=== PATIENT | female | born 1990 | race Caucasian/White ===

== ENCOUNTER 2016-08-03 09:48 | Emergency (ER) | payer OTHER ==
[2016-08-03 10:22] VITALS: BP 128/77
[2016-08-03] MEDS ORDERED: Lidocaine 2% PF * 5 ML VIAL ONE (10:31)
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
== END 2016-08-03 11:02 | disposition home or self-care (01) ==
LOC: UCEAST 09:48
DX: S01.112A Laceration without foreign body of left eyelid and periocular area, initial encounter (principal); V19.3XXA Pedal cyclist (driver) (passenger) injured in unspecified nontraffic accident, initial encounter; Z88.1 Allergy status to other antibiotic agents; Z88.5 Allergy status to narcotic agent
CPT/HCPCS: 12002; 12011; 99211; G0463

== ENCOUNTER 2016-08-19 16:12 | Emergency (ER) | payer OTHER ==
[2016-08-19 16:30] VITALS: BP 120/80
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
--- NOTE | 2016-08-19 17:05 | RAD ---
INDICATION: Right wrist injury. TECHNIQUE: 3 views of the right wrist were obtained. FINDINGS: There is marked soft tissue swelling present over the dorsal aspect of the wrist. The bones are in normal alignment. No fracture is seen. Joint spaces appear maintained. IMPRESSION: SOFT TISSUE SWELLING, NO FRACTURE IS SEEN. IF THE PATIENT'S SYMPTOMS PERSIST RECOMMEND FOLLOW-UP IMAGING.
== END 2016-08-19 17:14 | disposition home or self-care (01) ==
LOC: UCEAST 16:12
DX: S60.211A Contusion of right wrist, initial encounter (principal); V10.0XXA Pedal cycle driver injured in collision with pedestrian or animal in nontraffic accident, initial encounter; Y93.55 Activity, bike riding; Y92.9 Unspecified place or not applicable; Z88.5 Allergy status to narcotic agent; Z88.1 Allergy status to other antibiotic agents
CPT/HCPCS: 99212; G0463

== ENCOUNTER 2016-08-22 13:05 | Emergency (ER) | payer OTHER ==
[2016-08-22 13:19] VITALS: BP 134/92
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
== END 2016-08-22 13:43 | disposition home or self-care (01) ==
LOC: UCEAST 13:05
DX: S60.211D Contusion of right wrist, subsequent encounter (principal); V10.0XXD Pedal cycle driver injured in collision with pedestrian or animal in nontraffic accident, subsequent encounter; R03.0 Elevated blood-pressure reading, without diagnosis of hypertension; Z88.1 Allergy status to other antibiotic agents; Z88.5 Allergy status to narcotic agent
CPT/HCPCS: 99211; G0463

== ENCOUNTER 2016-09-08 19:32 | Emergency (ER) | payer SELFPAY ==
[2016-09-08 20:56] VITALS: BP 125/78
[2016-09-08] MEDS ORDERED: Gelfoam 12-7 ADSORBABLE* SPONGE ONE (21:14)
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
== END 2016-09-08 21:45 | disposition home or self-care (01) ==
LOC: UCEAST 19:32
DX: S61.012A Laceration without foreign body of left thumb without damage to nail, initial encounter (principal); W26.0XXA Contact with knife, initial encounter; Y93.9 Activity, unspecified; Y92.9 Unspecified place or not applicable; Y99.0 Civilian activity done for income or pay; Z88.1 Allergy status to other antibiotic agents; Z88.5 Allergy status to narcotic agent
CPT/HCPCS: 12001; 99211; A9270-GY; G0463

== ENCOUNTER 2017-06-15 20:33 | Emergency (ER) | payer OTHER ==
[2017-06-15] MEDS ORDERED: Ketorolac INJ* 30 MG/ML 1 ML VIAL IV PUSH ONE (21:37)
[2017-06-15] MEDS ORDERED: Clindamycin 600 MG IVPREMIX(* 600 MG/50 ML SDV IV ONE (21:56)
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
[2017-06-15 23:10] VITALS: BP 108/70
--- NOTE | 2017-06-16 12:38 | ED ---
Progress - Progress Note Progress Note: Pt's wound cx reveals + MRSA and + Staph Aureus. Pt was d/c'd w/ clindamycin. No change at this time. Course/Dx - Course Course Of Treatment: Brown discharge from wound. Cultured it and opened it to its depth. Only min output. No abscess. No Kinavel's signs. No lymphangitis. IV abx here after extensive cleaning in sink with chlorohexidine soap. D/C on antibiotics and dry dressing. - Diagnoses Provider Diagnoses: Wound infection
--- NOTE | 2017-06-17 09:15 | PN ---
Progress Note - Progress Note Date of Service: 06/15/17 Note: wound culture results shows - MRSA and + s aureus. placed on clinda at d/c. will wait for final culture sensitivity.
--- NOTE | 2017-06-18 09:00 | PN ---
Progress Note - Progress Note Date of Service: 07/16/17 Note: Wound culture grew s. aureus with + MRSA Patient placed on Clindamycin prior to discharge. Culture shows sensitivities to Clindamycin. Nothing further at this time, Jami Roman PA-C
== END 2017-06-15 23:18 | disposition home or self-care (01) ==
LOC: ED 20:33
DX: S61.512A Laceration without foreign body of left wrist, initial encounter (principal); L08.9 Local infection of the skin and subcutaneous tissue, unspecified; B95.62 Methicillin resistant Staphylococcus aureus infection as the cause of diseases classified elsewhere; W26.8XXA Contact with other sharp object(s), not elsewhere classified, initial encounter; Y93.9 Activity, unspecified; Z88.1 Allergy status to other antibiotic agents; Z88.8 Allergy status to other drugs, medicaments and biological substances
CPT/HCPCS: 87070; 87077; 87186; 87205; 87640; 87641; 96374; 96375; 99282; J1885

== ENCOUNTER 2017-07-06 11:33 | Emergency (ER) | payer OTHER ==
--- NOTE | 2017-07-06 12:58 | UC ---
Respiratory Complaint HPI - HPI Summary HPI Summary: 27 yo female c/o last 2 days progressive cough (clear), runny nose (nonpurulent) , headache, fever. No sore throat. No rash. GI upset but not n/v/d. No urinary symptoms. - History of Current Complaint Chief Complaint: UCGeneralIllness Stated Complaint: URI Time Seen by Provider: 07/06/17 12:31 Hx Obtained From: Patient Hx Last Menstrual Period: 06/25/17 ?: No - Allergies/Home Medications Allergies/Adverse Reactions: Allergies Allergy/AdvReac Type Severity Reaction Status Date / Time Codeine Allergy Severe Hives Verified 07/06/17 12:02 Amoxicillin [From Augmentin] Allergy Unknown Unknown Verified 07/06/17 12:02 Reaction Details Clavulanic Acid Allergy Unknown Unknown Verified 07/06/17 12:02 [From Augmentin] Reaction Details Bee Venom Allergy Hives/Diff. Verified 07/06/17 12:02 Breathing/I tching Hydromorphone [From Dilaudid] AdvReac Vomiting Verified 07/06/17 12:02 ishmael products Allergy Hives/Diff. Uncoded 07/06/17 12:02 Breathing/I tching PMH/Surg Hx/FS Hx/Imm Hx Previously Healthy: Yes Respiratory History: Asthma - Surgical History Surgical History: None Surgery Procedure, Year, and Place: denies - Family History Known Family History: Positive: Diabetes, Other - Depression, alcohol abuse. No hx of glaucoma - Social History Alcohol Use: Rare Substance Use Type: None, Prescribed Substance Use Comment - Amount & Last Used: ADDERAL Smoking Status (MU): Never Smoked Tobacco - Immunization History Most Recent Influenza Vaccination: never Most Recent Tetanus Shot: 2012 Most Recent Pneumonia Vaccination: never Review of Systems Constitutional: Fever, Fatigue Skin: Negative Eyes: Negative ENT: Nasal Discharge, Sinus Congestion Respiratory: Cough Cardiovascular: Other - chest pain with cough Gastrointestinal: Other - see hpi Genitourinary: Negative Motor: Negative Neurovascular: Negative Musculoskeletal: Negative Neurological: Headache Psychological: Negative Is Patient Immunocompromised?: No All Other Systems Reviewed And Are Negative: Yes Physical Exam Triage Information Reviewed: Yes Appearance: Well-Nourished - looks tired, able sit up and walk around but tired. NAD. Nontoxic. Vital Signs: Initial Vital Signs Temp 99.1 F 07/06/17 11:57 Pulse 101 07/06/17 11:57 Resp 18 07/06/17 11:57 BP 130/74 07/06/17 11:57 Pulse Ox 100 07/06/17 11:57 Vital Signs Reviewed: Yes Eye Exam: Normal ENT Exam: Normal ENT: Positive: Pharyngeal erythema - mild post pharyngeal redness, no sores, no purulence. Neck exam: Normal Neck: Positive: Supple, Nontender, No Lymphadenopathy Respiratory: Positive: Wheezing - occas exp wheeze, + rhonchorus cough. BS equal. Cardiovascular: Positive: No Murmur, Pulses Normal, Brisk Capillary Refill, Tachycardia - HR increases with sitting up. Good pulses. Nondiaphoretic. Reg rhythm Abdominal Exam: Normal Abdomen Description: Positive: Nontender Musculoskeletal Exam: Normal Neurological Exam: Normal - nonfocal, grossly intact Psychological Exam: Normal, Other - conversing easily and appropriately Skin Exam: Normal UC Diagnostic Evaluation - Laboratory Result Diagrams: 07/06/17 14:45 07/06/17 14:45 O2 Sat by Pulse Oximetry: 100 Respiratory Course/Dx - Course Course Of Treatment: Reviewed coa / tx plan. Reviewed CXR report. Questions as posed answered to the best of my ability. - Differential Dx/Diagnosis Provider Diagnoses: Bronchitis with bronchospasm Discharge - Discharge Plan Condition: Stable Disposition: HOME Prescriptions: Albuterol 2.5MG/3ML (0.083%)* [Ventolin 2.5 MG/3 ML NEB.MIGUEL ANGEL*] 2.5 mg INH Q6H PRN #1 box PRN Reason: Wheezing Albuterol HFA INHALER* [Ventolin HFA Inhaler*] 1 - 2 puff INH Q6H PRN #1 mdi PRN Reason: Wheezing Cephalexin CAP* [Keflex 500 CAP*] 500 mg PO TID #21 cap Oseltamivir CAP* [Tamiflu CAP*] 75 mg PO BID #10 cap Patient Education Materials: Acute Bronchitis (ED), Bronchospasm (ED) Forms: *Work Release Referrals: Delia Banda MD [Primary Care Provider] - Additional Instructions: Please follow up with your primary care provider, next week if possible. Seek medical attention for worse or new problems in the meantime.
[2017-07-06 13:43] VITALS: BP 120/77
--- NOTE | 2017-07-06 13:54 | RAD ---
HISTORY: Fever, cough COMPARISONS: September 05, 2012 VIEWS: 4: Frontal dual-energy and lateral views of the chest. FINDINGS: CARDIOMEDIASTINAL SILHOUETTE: The cardiomediastinal silhouette is normal. JOSEP: The josep are normal. PLEURA: The costophrenic angles are sharp. No pleural abnormalities are noted. LUNG PARENCHYMA: The lungs are clear. ABDOMEN: The upper abdomen is clear. There is no subphrenic gas. BONES AND SOFT TISSUES: No bone or soft tissue abnormalities are noted. OTHER: None. IMPRESSION: NO ACTIVE CARDIOPULMONARY DISEASE.
[2017-07-06 19:01] LABS: ABS Basophils 0.1 10^3/ul (0-0.2); ABS Eosinophils 0 10^3/ul (0-0.6); ABS Lymphocytes 0.9 10^3/ul (1.0-4.8); ABS Monocytes 0.7 10^3/ul (0-0.8); ABS Nucleated RBC 0 10^3/ul; Eosinophil % 0.4 % (0-6); Hematocrit 36 % (35-47); Hemoglobin 11.5 g/dl (12.0-16.0); Lymphocyte % 18.9 % (25-47); Mean Corpuscular HGB Conc 32 g/dl (31-36); Mean Corpuscular Hemoglobin 26 pg (27-31); Mean Corpuscular Volume 82 fL (80-97); Mean Platelet Volume 8 um3 (7.4-10.4); Nucleated Red Blood Cells % 0; Platelet Count 276 10^3/ul (150-450); Red Blood Count 4.41 10^6/ul (4.0-5.4); Red Cell Distribution Width 15 % (10.5-15); White Blood Count 4.6 10^3/ul (3.5-10.8)
[2017-07-06 19:11] LABS: EGFR Non-African American 97.2 (>60)
== END 2017-07-06 14:40 | disposition home or self-care (01) ==
LOC: UCEAST 11:33
DX: J20.9 Acute bronchitis, unspecified (principal); J45.909 Unspecified asthma, uncomplicated; Z88.5 Allergy status to narcotic agent; Z88.8 Allergy status to other drugs, medicaments and biological substances; Z88.1 Allergy status to other antibiotic agents; Z91.030 Bee allergy status
CPT/HCPCS: 36415; 71046; 80048; 85025; 86140; 87502; 99212; G0463

== ENCOUNTER → 2018-01-25 20:50 | Emergency (ER) | payer OTHER ==
--- NOTE | 2018-01-25 22:15 | ED ---
Skin Complaint - HPI Summary HPI Summary: This is scribe, Liberty Mooney, documenting for attending Dr. Ronaldo MD. A 28 y/o F presents to ED with multiple superficial lacs to R-side of cheek onset approx 1999. There are multiple, visible shards of glass embedded in R cheek. She states she was moving a glass piece away from the cats, but the cats tripped her. The glass piece broke and when she fell, she hit her R-side of face against the broken glass. Pt denies any glass in her mouth. I, Dr. Higgins, personally performed the services described in this documentation as scribed in my presence and it is both accurate and complete. - History of Current Complaint Chief Complaint: EDFacialInjury Time Seen by Provider: 01/25/18 21:55 Stated Complaint: FACE LAC Hx Obtained From: Patient Hx Last Menstrual Period: 11/23/17 Onset/Duration: Started Hours Ago - 1999, Traumatic - fall onto glass, Still Present Timing: Constant Onset Severity: Mild Current Severity: Mild Pain Intensity: 2 Pain Scale Used: 0-10 Numeric Skin Location: Face - R cheek Character: Pain - Additional Pertinent History Primary Care Physician: [id number] - Allergy/Home Medications Allergies/Adverse Reactions: Allergies Allergy/AdvReac Type Severity Reaction Status Date / Time amoxicillin Allergy Unknown Verified 01/25/18 21:01 Reaction Details bee venom protein (honey bee) Allergy Hives/Diff. Verified 01/25/18 21:01 Breathing/I tching clavulanic acid Allergy Unknown Verified 01/25/18 21:01 Reaction Details clindamycin Allergy Rash Verified 01/25/18 21:01 codeine Allergy Rash Verified 01/25/18 21:01 hydromorphone Allergy Vomiting Verified 01/25/18 21:01 ishmael products Allergy Hives/Diff. Uncoded 01/25/18 21:01 Breathing/I tching PMH/Surg Hx/FS Hx/Imm Hx Previously Healthy: No Endocrine/Hematology History: Reports: Hx Thyroid Disease - hypo Denies: Hx Diabetes Cardiovascular History: Denies: Hx Congestive Heart Failure, Hx Hypertension, Hx Pacemaker/ICD Respiratory History: Reports: Hx Asthma Denies: Hx Chronic Obstructive Pulmonary Disease (COPD) GI History: Denies: Hx Ulcer History: Denies: Hx Dialysis, Hx Renal Disease Psychiatric History: Reports: Other Psychiatric Issues/Disorders Denies: Hx Eating Disorder, Hx Panic Disorder, Hx of Violent Episodes Against Others - Surgical History Surgery Procedure, Year, and Place: denies - Immunization History Date of Tetanus Vaccine: Up to Date Infectious Disease History: No Infectious Disease History: Denies: Hx Clostridium Difficile, Hx Hepatitis, Hx Human Immunodeficiency Virus (HIV), Hx of Known/Suspected MRSA, Hx Shingles, Hx Tuberculosis, Hx Known/ Suspected VRE, Hx Known/Suspected VRSA, History Other Infectious Disease, Traveled Outside the [place] in Last 30 Days - Family History Known Family History: Positive: Diabetes, Other - Depression, alcohol abuse. No hx of glaucoma - Social History Occupation: Employed Full-time Lives: Alone Alcohol Use: Rare Hx Substance Use: No Substance Use Type: Reports: None Substance Use Comment - Amount & Last Used: ADDERAL Hx Tobacco Use: No Smoking Status (MU): Never Smoked Tobacco Review of Systems Negative: Fever Skin: Other - multiple superficial lacs to R cheek All Other Systems Reviewed And Are Negative: Yes Physical Exam - Summary Physical Exam Summary: Appearance: Well-appearing, Well-nourished, lying in bed comfortable Skin: Warm, dry, no obvious rash Face: Multiple very superficial lacs linear to cheek,. Minimal active bleeding. Few fragments of glass that were removed. Eyes: sclera anicteric, no conjunctival pallor ENT: mucous membranes moist Neck: deferred Respiratory: No signs of respiratory distress Cardiovascular: Appears well perfused, pulses are nml Abdomen: deferred Musculoskeletal: Moving all 4 extremities without obvious discomfort Neurological: Awake and alert, mentation is normal, speech is fluent and appropriate Psychiatric: affect is normal, does not appear anxious or depressed Vital Signs On Initial Exam: Initial Vitals Temp Pulse Resp BP Pulse Ox 97.8 F 69 16 117/92 100 01/25/18 20:54 01/25/18 20:54 01/25/18 20:54 01/25/18 20:54 01/25/18 20:54 Diagnostics - Vital Signs Vital Signs Temp Pulse Resp BP Pulse Ox 01/25/18 20:54 97.8 F 69 16 117/92 100 - Laboratory Lab Statement: Any lab studies that have been ordered have been reviewed, and results considered in the medical decision making process. Course/Dx - Diagnoses Provider Diagnoses: Facial laceration Discharge - Sign-Out/Discharge Documenting (check all that apply): Patient Departure - DC - Discharge Plan Condition: Good Disposition: HOME Patient Education Materials: Skin Adhesive Care (ED), Facial Laceration (ED) Referrals: Delia Banda MD [Primary Care Provider] - - Billing Disposition and Condition Condition: GOOD Disposition: Home
[2018-01-25 22:29] VITALS: BP 112/58
== END | disposition home or self-care (01) ==
LOC: ED 20:50
DX: S01.411A Laceration without foreign body of right cheek and temporomandibular area, initial encounter (principal); W01.110A Fall on same level from slipping, tripping and stumbling with subsequent striking against sharp glass, initial encounter; Y93.89 Activity, other specified; Y92.009 Unspecified place in unspecified non-institutional (private) residence as the place of occurrence of the external cause; Z88.5 Allergy status to narcotic agent; Z88.0 Allergy status to penicillin; Z88.1 Allergy status to other antibiotic agents; Z91.030 Bee allergy status; Z83.3 Family history of diabetes mellitus
CPT/HCPCS: 99281

== ENCOUNTER 2018-02-28 21:27 | Emergency (ER) | payer OTHER ==
[2018-02-28 21:33] VITALS: BP 107/68
--- NOTE | 2018-02-28 21:52 | ED ---
Abdominal Pain/Female - HPI Summary HPI Summary: right lower quadrant pain began early this am acutely , no associated nausea or vomiting, noted some tarry stools that were quite constipated later on in the day. - History of Current Complaint Chief Complaint: UCAbdominalPain Stated Complaint: ABD PAIN Time Seen by Provider: 02/28/18 21:37 Hx Last Menstrual Period: 1 WEEK AGO Severity Initially: Moderate Severity Currently: Moderate Pain Intensity: 7 Location: Discrete At: RLQ Radiates to: RLQ Character: Sharp Aggravating Factor(s): Nothing Alleviating Factor(s): Nothing Associated Signs and Symptoms: Positive: Other: - constipation and dark stools - Risk Factors Ectopic Risk Factor: Negative Ovarian Torsion Risk Factor: Reproductive Age Allergies/Adverse Reactions: Allergies Allergy/AdvReac Type Severity Reaction Status Date / Time amoxicillin Allergy Unknown Verified 02/28/18 21:33 Reaction Details bee venom protein (honey bee) Allergy Hives/Diff. Verified 02/28/18 21:33 Breathing/I tching clavulanic acid Allergy Unknown Verified 02/28/18 21:33 Reaction Details clindamycin Allergy Rash Verified 02/28/18 21:33 codeine Allergy Rash Verified 02/28/18 21:33 hydromorphone Allergy Vomiting Verified 02/28/18 21:33 ishmael products Allergy Hives/Diff. Uncoded 02/28/18 21:33 Breathing/I tching PMH/Surg Hx/FS Hx/Imm Hx Previously Healthy: Yes Endocrine/Hematology History: Reports: Hx Thyroid Disease - hypo Denies: Hx Diabetes Cardiovascular History: Denies: Hx Congestive Heart Failure, Hx Hypertension, Hx Pacemaker/ICD Respiratory History: Reports: Hx Asthma Denies: Hx Chronic Obstructive Pulmonary Disease (COPD) GI History: Denies: Hx Ulcer History: Denies: Hx Dialysis, Hx Renal Disease Psychiatric History: Reports: Other Psychiatric Issues/Disorders Denies: Hx Eating Disorder, Hx Panic Disorder, Hx of Violent Episodes Against Others - Surgical History Surgery Procedure, Year, and Place: denies - Immunization History Date of Tetanus Vaccine: Up to Date Infectious Disease History: No Infectious Disease History: Denies: Hx Clostridium Difficile, Hx Hepatitis, Hx Human Immunodeficiency Virus (HIV), Hx of Known/Suspected MRSA, Hx Shingles, Hx Tuberculosis, Hx Known/ Suspected VRE, Hx Known/Suspected VRSA, History Other Infectious Disease, Traveled Outside the [place] in Last 30 Days - Family History Known Family History: Positive: Diabetes, Other - Depression, alcohol abuse. No hx of glaucoma - Social History Alcohol Use: Rare Hx Substance Use: No Substance Use Type: Reports: None Substance Use Comment - Amount & Last Used: ADDERAL Hx Tobacco Use: No Smoking Status (MU): Never Smoked Tobacco Review of Systems Constitutional: Negative Eyes: Negative Positive: Photophobia ENT: Negative Positive: Epistaxis Cardiovascular: Negative Respiratory: Negative Positive: Abdominal Pain - right lower quadrant, without radiation Genitourinary: Negative Positive: no symptoms reported Musculoskeletal: Negative Skin: Other Positive: Rash All Other Systems Reviewed And Are Negative: Yes Physical Exam Triage Information Reviewed: Yes Vital Signs On Initial Exam: Initial Vitals Temp Pulse Resp BP Pulse Ox 36.6 C 79 16 107/68 99 02/28/18 21:30 02/28/18 21:30 02/28/18 21:30 02/28/18 21:30 02/28/18 21:30 Vital Signs Reviewed: Yes Appearance: Positive: Well-Appearing - complaining of pain , in position on arrival in the room Skin: Positive: Warm, Other - psoriatic plaques noted Head/Face: Positive: Normal Head/Face Inspection Eyes: Positive: Normal ENT: Positive: Normal ENT inspection Neck: Positive: Supple Respiratory/Lung Sounds: Positive: Clear to Auscultation Cardiovascular: Positive: Normal Abdomen Description: Positive: Other: - tender right lower quadrant, without rigidity , without rebound Bowel Sounds: Positive: Hypoactive Musculoskeletal: Positive: Normal Neurological: Positive: Normal Psychiatric: Positive: Normal Diagnostics - Vital Signs Vital Signs Temp Pulse Resp BP Pulse Ox 02/28/18 21:30 36.6 C 79 16 107/68 99 - Laboratory Lab Statement: Any lab studies that have been ordered have been reviewed, and results considered in the medical decision making process. Abdominal Pain Fem Course/Dx - Diagnoses Provider Diagnoses: Right lower quadrant abdominal pain Discharge - Sign-Out/Discharge Documenting (check all that apply): Patient Departure All imaging exams completed and their final reports reviewed: Yes - Discharge Plan Condition: Fair Disposition: HOME-RECOMMEND TO ED Patient Education Materials: Acute Abdominal Pain (DC) Referrals: Delia Banda MD [Primary Care Provider] - Additional Instructions: patient advised to go to the ER for further care to r/o appendicitis vs [place]el[place]merz - Billing Disposition and Condition Condition: FAIR Disposition: Home-Recommend to ED
== END 2018-02-28 22:15 | disposition home health service (06) ==
LOC: UCEAST 21:27
DX: R10.31 Right lower quadrant pain (principal); Z88.3 Allergy status to other anti-infective agents; Z88.5 Allergy status to narcotic agent
CPT/HCPCS: 81003; 99212; G0463

== ENCOUNTER 2018-02-28 22:32 | Emergency (ER) | payer OTHER ==
[2018-02-28] MEDS ORDERED: NS 0.9% 1000 ML* 1,000 ML IV ONE (23:19)
--- NOTE | 2018-02-28 23:38 | ED ---
Abdominal Pain/Female - HPI Summary HPI Summary: Patient complains of constant right lower quadrant pain since 3 AM today. Abdominal no pain described as constant with spikes, worse 9 out of 10, sharp. Patient states she has history of ovarian cysts on right side, but states this pain is worse and feels different. Denies fever, cough, sore throat, CP, SOB, N /V/D, change in urine, vaginal symptoms, change in BM. Medical history is asthma. Abdominal/pelvic surgical history is none. LMP last week. Denies . - History of Current Complaint Chief Complaint: EDAbdPain Stated Complaint: RT SIDE ABD PAIN Time Seen by Provider: 02/28/18 23:06 Hx Obtained From: Patient Hx Last Menstrual Period: 1 WEEK AGO ?: No Onset/Duration: Sudden Onset Timing: Constant Severity Initially: Moderate Severity Currently: Moderate Pain Intensity: 7 Pain Scale Used: 0-10 Numeric Location: Discrete At: RLQ Radiates: No Character: Sharp Aggravating Factor(s): Nothing Alleviating Factor(s): Nothing Associated Signs and Symptoms: Positive: Decreased Appetite Allergies/Adverse Reactions: Allergies Allergy/AdvReac Type Severity Reaction Status Date / Time amoxicillin Allergy Unknown Verified 02/28/18 22:46 Reaction Details bee venom protein (honey bee) Allergy Hives/Diff. Verified 02/28/18 22:46 Breathing/I tching clavulanic acid Allergy Unknown Verified 02/28/18 22:46 Reaction Details clindamycin Allergy Rash Verified 02/28/18 22:46 codeine Allergy Rash Verified 02/28/18 22:46 hydromorphone Allergy Vomiting Verified 02/28/18 22:46 ishmael products Allergy Hives/Diff. Uncoded 02/28/18 22:46 Breathing/I tching PMH/Surg Hx/FS Hx/Imm Hx Endocrine/Hematology History: Reports: Hx Thyroid Disease - hypo Denies: Hx Diabetes Cardiovascular History: Denies: Hx Congestive Heart Failure, Hx Hypertension, Hx Pacemaker/ICD Respiratory History: Reports: Hx Asthma Denies: Hx Chronic Obstructive Pulmonary Disease (COPD) GI History: Denies: Hx Ulcer History: Denies: Hx Dialysis, Hx Renal Disease Psychiatric History: Reports: Other Psychiatric Issues/Disorders Denies: Hx Eating Disorder, Hx Panic Disorder, Hx of Violent Episodes Against Others - Surgical History Surgery Procedure, Year, and Place: denies - Immunization History Date of Tetanus Vaccine: Up to Date Infectious Disease History: No Infectious Disease History: Denies: Hx Clostridium Difficile, Hx Hepatitis, Hx Human Immunodeficiency Virus (HIV), Hx of Known/Suspected MRSA, Hx Shingles, Hx Tuberculosis, Hx Known/ Suspected VRE, Hx Known/Suspected VRSA, History Other Infectious Disease, Traveled Outside the [place] in Last 30 Days - Family History Known Family History: Positive: Diabetes, Other - Depression, alcohol abuse. No hx of glaucoma - Social History Alcohol Use: Rare Hx Substance Use: No Substance Use Type: Reports: None Substance Use Comment - Amount & Last Used: ADDERAL Hx Tobacco Use: No Smoking Status (MU): Never Smoked Tobacco Review of Systems Constitutional: Negative Eyes: Negative ENT: Negative Cardiovascular: Negative Respiratory: Negative Positive: Abdominal Pain Genitourinary: Negative Musculoskeletal: Negative Skin: Negative Neurological: Negative Psychological: Normal All Other Systems Reviewed And Are Negative: Yes Physical Exam - Summary Physical Exam Summary: Positive Merino's. Positive tenderness right lower quadrant. Abdominal exam otherwise unremarkable. Triage Information Reviewed: Yes Vital Signs On Initial Exam: Initial Vitals Temp Pulse Resp BP Pulse Ox 98.3 F 73 16 121/79 100 02/28/18 22:42 02/28/18 22:42 02/28/18 22:42 02/28/18 22:42 02/28/18 22:42 Vital Signs Reviewed: Yes Appearance: Positive: Well-Appearing Skin: Positive: Warm Head/Face: Positive: Normal Head/Face Inspection Eyes: Positive: Normal Neck: Positive: Supple Respiratory/Lung Sounds: Positive: Clear to Auscultation Cardiovascular: Positive: Normal Abdomen Description: Positive: Other: Musculoskeletal: Positive: Normal Neurological: Positive: Normal Psychiatric: Positive: Normal AVPU Assessment: Alert - Jl Coma Scale Best Eye Response: 4 - Spontaneous Best Motor Response: 6 - Obeys Commands Best Verbal Response: 5 - Oriented Coma Scale Total: 15 Diagnostics - Vital Signs Vital Signs Temp Pulse Resp BP Pulse Ox 02/28/18 23:03 62 100 02/28/18 23:02 70 126/77 98 02/28/18 22:42 98.3 F 73 16 121/79 100 - Laboratory Result Diagrams: 02/28/18 23:41 02/28/18 23:41 Lab Statement: Any lab studies that have been ordered have been reviewed, and results considered in the medical decision making process. Abdominal Pain Fem Course/Dx - Course Course Of Treatment: Patient complains of constant right lower quadrant pain since 3 AM today. Abdominal no pain described as constant with spikes, worse 9 out of 10, sharp. Patient states she has history of ovarian cysts on right side , but states this pain is worse and feels different. Denies fever, cough, sore throat, CP, SOB, N/V/D, change in urine, vaginal symptoms, change in BM. Medical history is asthma. Abdominal/pelvic surgical history is none. LMP last week. Denies . Physical exam:Positive Merino's. Positive tenderness right lower quadrant. Abdominal exam otherwise unremarkable. Vital signs normal. Labs unremarkable. Ultrasound transvaginal negative. CT abdomen and pelvis negative. - Diagnoses Provider Diagnoses: Abdominal pain Discharge - Sign-Out/Discharge Documenting (check all that apply): Sign-Out Patient Signing out patient TO: Isaac Higgins - Discharge Plan Condition: Good Disposition: HOME Patient Education Materials: [place] (ED), Acute Abdominal Pain (ED) Referrals: Delia Banda MD [Primary Care Provider] - - Billing Disposition and Condition Condition: GOOD Disposition: Home
[2018-03-01 00:07] LABS: ABS Basophils 0 10^3/ul (0-0.2); ABS Eosinophils 0.1 10^3/ul (0-0.6); ABS Lymphocytes 2.5 10^3/ul (1.0-4.8); ABS Monocytes 0.8 10^3/ul (0-0.8); ABS Neutrophils 2.8 10^3/ul (1.5-7.7); ABS Nucleated RBC 0 10^3/ul; Eosinophil % 2.3 % (0-6); Hematocrit 35 % (35-47); Hemoglobin 11.4 g/dl (12.0-16.0); Lymphocyte % 39.6 % (25-47); Mean Corpuscular HGB Conc 33 g/dl (31-36); Mean Corpuscular Hemoglobin 27 pg (27-31); Mean Corpuscular Volume 82 fL (80-97); Mean Platelet Volume 7.1 um3 (7.4-10.4); Nucleated Red Blood Cells % 0; Platelet Count 341 10^3/ul (150-450); Red Blood Count 4.23 10^6/ul (4.00-5.40); Red Cell Distribution Width 16 % (10.5-15); White Blood Count 6.2 10^3/ul (3.5-10.8)
[2018-03-01 00:14] LABS: EGFR Non-African American 69.2 (>60)
[2018-03-01] MEDS ORDERED: Iohexol 300* (CONTRAST) 10 ML SDV IV ONE (00:50)
--- NOTE | 2018-03-01 03:07 | RAD ---
EXAM: US Pelvis, Transvaginal CLINICAL HISTORY: 28 years old, female; Pain; Pelvic pain; Additional info: Rlq pain, sudden, constant, sharp. Torsion? Pain x 21 hrs TECHNIQUE: Real-time transvaginal pelvic ultrasound (complete) with image documentation. Transvaginal imaging was used for better evaluation of the endometrium and adnexa. COMPARISON: PELVIC US PELVIC 07/31/2015 3:24 PM FINDINGS: Uterus/cervix: Uterus is unremarkable measuring 8.0 x 3.6 x 4.4 cm. Endometrial thickness is normal measuring 5.1 mm. No myometrial mass. Right ovary: Right ovary is unremarkable measuring 3.5 x 2.1 x 2.8 cm. Normal blood flow. Left ovary: Left ovary is unremarkable measuring 4.7 x 2.4 x 2.7 cm. Normal blood flow. Free fluid: No free fluid. Bladder: Empty bladder which cannot be evaluated with this probe. IMPRESSION: No acute findings.
--- NOTE | 2018-03-01 03:19 | RAD ---
EXAM: CT Abdomen and Pelvis With Intravenous Contrast CLINICAL HISTORY: 28 years old, female; Pain; Abdominal pain; Localized; Right lower quadrant (rlq); Additional info: Rlq pain TECHNIQUE: Axial computed tomography images of the abdomen and pelvis with intravenous contrast. All CT scans at this facility use at least one of these dose optimization techniques: automated exposure control; mA and/or kV adjustment per patient size (includes targeted exams where dose is matched to clinical indication); or iterative reconstruction. Coronal and sagittal reformatted images were created and reviewed. CONTRAST: 100 mL of OMNi administered intravenously. COMPARISON: C/A/P W CT CHEST/ABD/PEL W 03/04/2015 6:00 PM FINDINGS: Lung bases: Unremarkable. No mass. No consolidation. ABDOMEN: Liver: Unremarkable. No mass. Gallbladder and bile ducts: Unremarkable. No calcified stones. No ductal dilation. Pancreas: Unremarkable. No mass. No ductal dilation. Spleen: Unremarkable. No splenomegaly. Adrenals: Unremarkable. No mass. Kidneys and ureters: Unremarkable. No solid mass. No hydronephrosis. Stomach and bowel: Unremarkable. No obstruction. No mucosal thickening. PELVIS: Appendix: No findings to suggest acute appendicitis. Bladder: Unremarkable. No mass. Reproductive: Unremarkable as visualized. ABDOMEN and PELVIS: Intraperitoneal space: Unremarkable. No free air. No significant fluid collection. Bones/joints: No acute fracture. No dislocation. Soft tissues: Unremarkable. Vasculature: Unremarkable. No abdominal aortic aneurysm. Lymph nodes: Unremarkable. No enlarged lymph nodes. IMPRESSION: Normal abdomen and pelvis CT.
[2018-03-01 03:23] LABS: Urine Appearance Cloudy; Urine Blood Negative (Negative); Urine Color Straw; Urine Ketones Negative (Negative); Urine Protein Negative (Negative); Urine Specific Gravity 1.009 (1.010-1.030); Urine Urobilinogen Negative (Negative)
--- NOTE | 2018-03-01 03:30 | ED ---
Progress - Results/Orders Results/Orders: CT A/P: nl CT A/P. Dr. Higgins has reviewed this report. US TV: No acute findings. Dr. Higgins has reviewed this report. Course/Dx - Course Course Of Treatment: Patient complains of constant right lower quadrant pain since 3 AM today. Abdominal no pain described as constant with spikes, worse 9 out of 10, sharp. Patient states she has history of ovarian cysts on right side , but states this pain is worse and feels different. Denies fever, cough, sore throat, CP, SOB, N/V/D, change in urine, vaginal symptoms, change in BM. Medical history is asthma. Abdominal/pelvic surgical history is none. LMP last week. Denies . Physical exam:Positive Merino's. Positive tenderness right lower quadrant. Abdominal exam otherwise unremarkable. Vital signs normal. Labs unremarkable. Discharge - Sign-Out/Discharge Documenting (check all that apply): Patient Departure - discharge, Receiving Sign-Out Receiving patient FROM: Titus Carvalho - pending CT A/P, US TV - Discharge Plan Condition: Stable Disposition: HOME Referrals: Delia Banda MD [Primary Care Provider] - - Attestation Statements Document Initiated by Scribe: Yes Documenting Scribe: Tyshawn Cullen Provider For Whom Scribe is Documenting (Include Credential): Dr. Isaac Higgins MD Scribe Attestation: Tyshawn Cedeno, scribed for Dr. Isaac Higgins MD on 03/01/18 at 0331.
[2018-03-01 04:44] VITALS: BP 115/71
== END 2018-03-01 04:10 | disposition home or self-care (01) ==
LOC: ED 22:32
DX: R10.31 Right lower quadrant pain (principal); Z88.0 Allergy status to penicillin
CPT/HCPCS: 36415; 74177; 76830; 80053; 81003; 83690; 84702; 85025; 86140; 99284; Q9967

== ENCOUNTER 2018-06-17 16:46 | Emergency (ER) | payer OTHER ==
--- NOTE | 2018-06-17 16:47 | UC ---
Lower Extremity/Ankle HPI - HPI Summary HPI Summary: 28 yo female presents with LEFT ankle pain. She tells me that she works at [employer] and today at work she stepped on a bagel on the floor and inverted her left ankle and fell onto her buttocks. Since that time has had left ankle pain and pain with weight bearing. Denies numbness or tingling. - History of Current Complaint Stated Complaint: L ANKLE COMPLAINT Time Seen by Provider: 06/17/18 16:47 Hx Obtained From: Patient Hx Last Menstrual Period: 1 WEEK AGO Onset/Duration: Sudden Onset Severity Initially: Moderate Severity Currently: Moderate Pain Intensity: 5 Pain Scale Used: 0-10 Numeric Aggravating Factor(s): Standing, Ambulation Alleviating Factor(s): Rest Able to Bear Weight: Yes - Allergies/Home Medications Allergies/Adverse Reactions: Allergies Allergy/AdvReac Type Severity Reaction Status Date / Time amoxicillin Allergy Unknown Verified 06/17/18 17:06 Reaction Details bee venom protein (honey bee) Allergy Hives/Diff. Verified 06/17/18 17:06 Breathing/I tching clavulanic acid Allergy Unknown Verified 06/17/18 17:06 Reaction Details clindamycin Allergy Rash Verified 06/17/18 17:06 codeine Allergy Rash Verified 06/17/18 17:06 hydromorphone Allergy Vomiting Verified 06/17/18 17:06 ishmael products Allergy Hives/Diff. Uncoded 06/17/18 17:06 Breathing/I tching PMH/Surg Hx/FS Hx/Imm Hx - Additional Past Medical History Additional PMH: ADHD Asthma - Surgical History Surgical History: None Surgery Procedure, Year, and Place: denies - Family History Known Family History: Positive: Diabetes, Other - Depression, alcohol abuse. No hx of glaucoma - Social History Occupation: Employed Part-time Lives: With Family Alcohol Use: Rare Substance Use Type: None Substance Use Comment - Amount & Last Used: ADDERAL Smoking Status (MU): Never Smoked Tobacco - Immunization History Most Recent Influenza Vaccination: never Most Recent Tetanus Shot: 2011 Most Recent Pneumonia Vaccination: never Review of Systems All Other Systems Reviewed And Are Negative: Yes Constitutional: Positive: Negative Skin: Positive: Negative Respiratory: Positive: Negative Cardiovascular: Positive: Negative Neurovascular: Positive: Negative Musculoskeletal: Positive: Other: - Left ankle pain Neurological: Positive: Negative Psychological: Positive: Negative Physical Exam - Summary Physical Exam Summary: GENERAL: NAD. WDWN. No pain distress. SKIN: No rashes, sores, lesions, or open wounds. CHEST: No accessory muscle use. Breathing comfortably and in no distress. CV: Pulses intact PT and DP. Cap refill <2seconds MSK: LEFT ANKLE: Mild TTP overlying ATFL and inferior lateral malleolus. FROM. Mild increased laxity with inversion. Strength 5/5. No edema or obvious bony deformities. Positive talar tilt. NEURO: Alert. Sensations intact and symmetric B/L LEs PSYCH: Age appropriate behavior. Triage Information Reviewed: Yes Vital Signs: Vital Signs (72 hours) 06/17/18 17:01 Temperature 99.1 F Pulse Rate 88 Respiratory 16 Rate Blood Pressure 120/80 (mmHg) O2 Sat by Pulse 100 Oximetry Vital Signs Reviewed: Yes Lower Extremity Course/Dx - Course Course Of Treatment: XR: IMPRESSION: No fracture of the left ankle is noted. Suspect ankle sprain. Pt placed in CAM boot and advised to f/u with Dr. Allen for her work related injury. - Differential Dx/Diagnosis Provider Diagnosis: Left ankle sprain Discharge - Sign-Out/Discharge Documenting (check all that apply): Patient Departure All imaging exams completed and their final reports reviewed: Yes - Discharge Plan Condition: Stable Disposition: HOME Patient Education Materials: Ankle Sprain (ED) Forms: *Work Release Referrals: Delia Banda MD [Primary Care Provider] - Dilan Allen MD [Medical Doctor] - If Needed Additional Instructions: If you develop a fever, shortness of breath, chest pain, new or worsening symptoms - please call your PCP or go to the ED. 1) Rest, Ice, and elevate your ankle as much as possible 2) Use the walking boot as much as possible for pain relief and added support 3) If your symptoms do not improve - please call Dr. Allen at the number below to schedule a follow up appointment regarding your work related injury - Billing Disposition and Condition Condition: STABLE Disposition: Home - Attestation Statements Provider Attestation: I was available for consult. This patient was seen by the ANGELLA. The patient was not presented to, seen by, or examined by me. -Edith
[2018-06-17 17:05] VITALS: BP 120/80
== END 2018-06-17 17:44 | disposition home or self-care (01) ==
LOC: UCEAST 16:46
DX: S93.402A Sprain of unspecified ligament of left ankle, initial encounter (principal); J45.909 Unspecified asthma, uncomplicated; F90.9 Attention-deficit hyperactivity disorder, unspecified type; Z88.0 Allergy status to penicillin; Z91.030 Bee allergy status; Z88.1 Allergy status to other antibiotic agents; Z88.5 Allergy status to narcotic agent; Z88.8 Allergy status to other drugs, medicaments and biological substances; X50.1XXA Overexertion from prolonged static or awkward postures, initial encounter; Y92.9 Unspecified place or not applicable
CPT/HCPCS: 99213; G0463

== ENCOUNTER 2018-09-29 15:44 | Emergency (ER) | payer OTHER ==
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
[2018-09-29 15:52] VITALS: BP 141/85
== END 2018-09-29 16:50 | disposition home or self-care (01) ==
LOC: UCEAST 15:44
DX: S89.91XA Unspecified injury of right lower leg, initial encounter (principal); S80.211A Abrasion, right knee, initial encounter; V03.12XA Pedestrian on skateboard injured in collision with car, pick-up truck or van in traffic accident, initial encounter; Y93.51 Activity, roller skating (inline) and skateboarding; Y92.410 Unspecified street and highway as the place of occurrence of the external cause; F90.9 Attention-deficit hyperactivity disorder, unspecified type; J45.909 Unspecified asthma, uncomplicated; Z88.1 Allergy status to other antibiotic agents; Z91.030 Bee allergy status; Z88.5 Allergy status to narcotic agent; Z88.0 Allergy status to penicillin; Z91.048 Other nonmedicinal substance allergy status
CPT/HCPCS: 99212; G0463

== ENCOUNTER 2018-12-30 14:09 | Emergency (ER) | payer OTHER ==
[2018-12-30 14:33] VITALS: BP 119/75
[2018-12-30] MEDS ORDERED: Tetan/Diph/Pertus SYR(Tdap)* 0.5 ML SYR(BOOSTRIX) use SYR IM ONE (14:34)
--- NOTE | 2018-12-30 14:35 | UC ---
Skin Complaint HPI - HPI Summary HPI Summary: 28 yo female presents with laceration to right hand. She tells me that [employer] she was opening a tin can and the lid slipped and sliced her dorsal right hand - she sustained a laceration here. She washed the area and applied a band-aid and came to . She says that her last tetanus was 10 years ago. - History of Current Complaint Chief Complaint: UCLaceration Time Seen by Provider: 12/30/18 14:34 Stated Complaint: rt hand injury Hx Obtained From: Patient Hx Last Menstrual Period: 1 WEEK AGO Onset/Duration: Sudden Onset Onset Severity: Mild Current Severity: Mild Pain Intensity: 0 Pain Scale Used: 0-10 Numeric - Allergy/Home Medications Allergies/Adverse Reactions: Allergies Allergy/AdvReac Type Severity Reaction Status Date / Time amoxicillin Allergy Unknown Verified 12/30/18 14:33 Reaction Details bee venom protein (honey bee) Allergy Hives/Diff. Verified 12/30/18 14:33 Breathing/I tching clavulanic acid Allergy Unknown Verified 12/30/18 14:33 Reaction Details clindamycin Allergy Rash Verified 12/30/18 14:33 codeine Allergy Rash Verified 12/30/18 14:33 hydromorphone Allergy Vomiting Verified 12/30/18 14:33 ishmael products Allergy Intermediate Hives/Diff. Uncoded 12/30/18 14:33 Breathing/I tching PMH/Surg Hx/FS Hx/Imm Hx - Additional Past Medical History Additional PMH: ADHD Respiratory History: Asthma - Surgical History Surgical History: None Surgery Procedure, Year, and Place: denies - Family History Known Family History: Positive: Diabetes, Other - Depression, alcohol abuse. No hx of glaucoma - Social History Lives: With Family Alcohol Use: Rare Substance Use Type: None Substance Use Comment - Amount & Last Used: ADDERAL Smoking Status (MU): Never Smoked Tobacco - Immunization History Most Recent Influenza Vaccination: never Most Recent Tetanus Shot: 2011 Most Recent Pneumonia Vaccination: never Review of Systems All Other Systems Reviewed And Are Negative: Yes Constitutional: Positive: Negative Skin: Positive: Other - Right hand laceration Respiratory: Positive: Negative Cardiovascular: Positive: Negative Neurovascular: Positive: Negative Musculoskeletal: Positive: Negative Neurological: Positive: Negative Psychological: Positive: Negative Physical Exam - Summary Physical Exam Summary: GENERAL: NAD. WDWN. No pain distress. SKIN: RIGHT HAND: Dorsal aspect overlying 2-4th MC with partial thickness laceration 2.5cm in length. Clean appearing. No tendon involvement. No FB. CHEST: No accessory muscle use. Breathing comfortably and in no distress. CV: Pulses intact. Cap refill <2seconds MSK: FROM and intact strength all digits right hand NEURO: Alert. PSYCH: Age appropriate behavior. Triage Information Reviewed: Yes Vital Signs: Initial Vital Signs Temp 99.0 F 12/30/18 14:28 Pulse 90 12/30/18 14:28 Resp 18 12/30/18 14:28 BP 119/75 12/30/18 14:28 Pulse Ox 100 12/30/18 14:28 Vital Signs Reviewed: Yes Laceration Repair - Laceration Repair 1 Description: Linear Laceration Size After Repair: Length (cm) - 2.5 Modified For Repair: No Anesthesia Used: 2.0% Lido Irrigation With Pressure Irrigation Device: Yes Closure Material: Sutures - #2 Closure Method: Single Layer Suture Of: Skin Suture Type: Prolene - 5-0 Course/Dx - Course Course Of Treatment: The procedure was explained to the pt and all questions were answered. A time out was performed, witnessed, and signed. The area was irrigated with 200mL sterile saline. 1mL of 2% lidocaine without epi was administered and good anesthetization was achieved. In the usual sterile fashion, TWO 5-0 prolene interrupted sutures were placed. The wound was bandaged with telfa . Pt tolerated procedure well. tdap updated today - Diagnoses Provider Diagnosis: Laceration of right hand Discharge - Sign-Out/Discharge Documenting (check all that apply): Patient Departure All imaging exams completed and their final reports reviewed: No Studies - Discharge Plan Condition: Stable Disposition: HOME Patient Education Materials: Care For Your Stitches (DC), Laceration (DC) Referrals: Delia Banda MD [Primary Care Provider] - Additional Instructions: If you develop a fever, shortness of breath, chest pain, new or worsening symptoms - please call your PCP or go to the ED immediately. 1) Please keep the area bandaged, clean, dry, and intact for the next 24- 48hours and then keep covered daily with a bandaged until sutures are removed. 2) If you develop a fever, colored or thick discharge, increased pain or swelling - please call your PCP or return for a wound check. 3) Please return in 7-10 days to have your TWO sutures removed. - Billing Disposition and Condition Condition: STABLE Disposition: Home - Attestation Statements Provider Attestation: Per institutional requirements, I have reviewed the chart, however, I was not consulted specifically or made aware of this patient by the midlevel provider. I did not personally evaluate, interact with , or disposition this patient.
[2018-12-30] MEDS ORDERED: Lidocaine 2% PF * 5 ML VIAL INJ ONE (15:10)
== END 2018-12-30 15:45 | disposition home or self-care (01) ==
LOC: UCEAST 14:09
DX: S61.411A Laceration without foreign body of right hand, initial encounter (principal); W26.8XXA Contact with other sharp object(s), not elsewhere classified, initial encounter; Y93.G9 Activity, other involving cooking and grilling; Y92.010 Kitchen of single-family (private) house as the place of occurrence of the external cause; Y99.8 Other external cause status; J45.909 Unspecified asthma, uncomplicated; F90.9 Attention-deficit hyperactivity disorder, unspecified type; Z88.5 Allergy status to narcotic agent
CPT/HCPCS: 12001; 90471; 90715; 99211; G0010; G0463

== ENCOUNTER 2019-01-25 13:35 | Emergency (ER) | payer OTHER ==
[2019-01-25 13:46] VITALS: BP 110/73
--- NOTE | 2019-01-25 13:55 | UC ---
Lower Extremity/Ankle HPI - HPI Summary HPI Summary: Sudden R knee pain after falling off of a skateboard. Has had R knee pain a few wks before this from a different injury and feels it has gotten worse after this fall. She scraped L knee as well. Certain movements make it worse. Nothing makes it better. - History of Current Complaint Chief Complaint: UCLowerExtremity Stated Complaint: R KNEE INJURY Time Seen by Provider: 01/25/19 13:42 Hx Obtained From: Patient Hx Last Menstrual Period: 1 WEEK AGO Onset/Duration: Sudden Onset Pain Intensity: 8 Pain Scale Used: 0-10 Numeric Aggravating Factor(s): Standing, Ambulation Alleviating Factor(s): Rest - Allergies/Home Medications Allergies/Adverse Reactions: Allergies Allergy/AdvReac Type Severity Reaction Status Date / Time amoxicillin Allergy Unknown Verified 01/25/19 13:46 Reaction Details bee venom protein (honey bee) Allergy Hives/Diff. Verified 01/25/19 13:46 Breathing/I tching clavulanic acid Allergy Unknown Verified 01/25/19 13:46 Reaction Details clindamycin Allergy Rash Verified 01/25/19 13:46 codeine Allergy Rash Verified 01/25/19 13:46 hydromorphone Allergy Vomiting Verified 01/25/19 13:46 ishmael products Allergy Intermediate Hives/Diff. Uncoded 01/25/19 13:46 Breathing/I tching PMH/Surg Hx/FS Hx/Imm Hx - Additional Past Medical History Additional PMH: no chronic illness Previously Healthy: Yes - Surgical History Surgical History: None Surgery Procedure, Year, and Place: denies - Family History Known Family History: Positive: Diabetes, Other - Depression, alcohol abuse. No hx of glaucoma - Social History Alcohol Use: Rare Substance Use Type: None Substance Use Comment - Amount & Last Used: ADDERAL Smoking Status (MU): Never Smoked Tobacco - Immunization History Most Recent Influenza Vaccination: never Most Recent Tetanus Shot: 2011 Most Recent Pneumonia Vaccination: never Review of Systems All Other Systems Reviewed And Are Negative: Yes Constitutional: Negative: Fever Skin: Positive: Bruising - R knee. Negative: Rash Respiratory: Positive: Negative Cardiovascular: Positive: Negative Musculoskeletal: Positive: Arthralgia - R knee, Decreased ROM - R knee, Edema - R knee. Negative: Myalgia Physical Exam Triage Information Reviewed: Yes Appearance: Well-Appearing Vital Signs: Initial Vital Signs Temp 97.6 F 01/25/19 13:43 Pulse 81 01/25/19 13:43 Resp 18 01/25/19 13:43 BP 110/73 01/25/19 13:43 Pulse Ox 100 01/25/19 13:43 Vital Signs Reviewed: Yes Respiratory Exam: Normal Cardiovascular Exam: Normal Musculoskeletal: Positive: Strength Intact - LE bilat., ROM Intact - R knee but assoc. w/ pain., Edema @ - R knee, Other: - Pain w. ant. drawer test. Neurological: Positive: Alert Skin: Positive: Other - abrasion on L knee Diagnostics - Radiology No standard instances Radiology Interpretation Completed By: Radiologist Summary of Radiographic Findings: IMPRESSION: #. Negative exam. Lower Extremity Course/Dx - Course Course Of Treatment: R knee pain w/ minimal swelling on exam after a fall from skateboard. XRAY did not show any fx. exam was significant for pain. suspect a tear vs. contusion. have asked her to see primary care to consider further eval and possible mri. we were able to HAYLEE wrap her R knee and ok to take otc nsaids. - Differential Dx/Diagnosis Differential Diagnosis/HQI/PQRI: Arthritis, Contusion, Fracture (Closed), Sprain , Strain Provider Diagnosis: Right knee pain Discharge - Sign-Out/Discharge Documenting (check all that apply): Patient Departure All imaging exams completed and their final reports reviewed: No Studies - Discharge Plan Condition: Good Disposition: HOME Patient Education Materials: Knee Pain (ED) Referrals: Diana Krishnamurthy PA [Physician [employer]] - Additional Instructions: Please follow up with Orthopedics and/or primary care. You may need an MRI. - Billing Disposition and Condition Condition: GOOD Disposition: Home
== END 2019-01-25 15:20 | disposition home or self-care (01) ==
LOC: UCEAST 13:35
DX: M25.561 Pain in right knee (principal); Z88.5 Allergy status to narcotic agent
CPT/HCPCS: 99212; G0463